=== PATIENT | female | born 1985 | race Caucasian/White ===

== ENCOUNTER 2016-10-02 10:35 | Emergency (ER) | payer MEDICAID ==
[~2016-10-02] VITALS: Wt 78.0 kg
[2016-10-02 11:47] LABS: ADD UMIC YES; URINE BILIRUBIN (Dip) NEGATIVE (NEGATIVE); URINE BLOOD (Dip) 3+ (NEGATIVE); URINE COLOR YELLOW (YELLOW); URINE GLUCOSE (Dip) NEGATIVE (NEGATIVE); URINE KETONES (Dip) TRACE (NEGATIVE); URINE LEUKOCYTE ESTERASE (Dip) NEGATIVE (NEGATIVE); URINE NITRITE (Dip) NEGATIVE (NEGATIVE); URINE TOTAL PROTEIN (Dip) TRACE (NEGATIVE); URINE UROBILINOGEN (Dip) 0.2 E.U./dL (0.1-1.0)
[2016-10-02 12:07] LABS: BACTERIA,URINE FEW; URINE RBCS >50 /HPF (0)
--- NOTE | 2016-10-02 12:12 | RADRPT ---
PROCEDURE: OBSTETRICAL ULTRASOUND CLINICAL INDICATION: Patient experiencing Vaginal Bleed () TECHNIQUE: Multiple sonographic images of the pelvis were obtained utilizing a transabdominal tech nique. The images were reviewed on a PACS workstation. COMPARISON: None. LMP: 08/21/2016 FINDINGS: The uterus measures 8.8 x 5.3 x 7.2 cm. The endometrial echo complex measures 15 mm in thickness an d is somewhat heterogeneous. There is no evidence of an intrauterine . The right ovary measures 3.6 x 2.2 x 3.0 cm. The left ovary measures 7.2 x 6.0 x 7.6 cm. There is no rmal vascular flow in both ovaries. There is a thick-walled oval cystic lesion with minimal internal debris in the right ovary and mild peripheral vascular flow which is likely a corpus luteal cyst. There is a 6.1 x 4.3 x 7.0 simple cystic lesion in the left adnexa. No significant pelvic free fluid is identified. IMPRESSION: Thickening and heterogeneity of the endometrium without evidence of an intrauterine . Find ings may be due to an early intrauterine although an ectopic cannot be excluded. Short-term follow-up ultrasound and serial Beta HCG measurements are recommended for further evalu ation. Minimally complex 1.5 cm cystic lesion in the right ovary is likely a corpus luteal cyst. 7 cm simple cystic lesion in the left adnexa. This may be a paraovarian cyst. MRI of the pelvis wi th contrast is recommended once the patient is no longer . RPTAT: EE Physician Torsten Date Time Electronically viewed and signed by Physician Torsten on 10/02/2016 12:12 /
[2016-10-02 12:51] LABS: BASOPHILS % 0.4 % (0.0-2.0); CONDITION 1; EOSINOPHILS # 0.1 10^3/ul (0.0-0.5); EOSINOPHILS % 1.3 % (0.0-7.0); HEMATOCRIT 39.5 % (37.0-47.0); HEMOGLOBIN 13.3 g/dl (12.0-16.0); LYMPHOCYTES % 31.5 % (15.0-51.0); MEAN CORPUSCULAR HEMOGLOBIN 30.2 pg (29.0-33.0); MEAN CORPUSCULAR HGB CONC 33.7 g/dl (32.0-37.0); MEAN CORPUSCULAR VOLUME 89.6 fl (82.0-101.0); MEAN PLATELET VOLUME 10.2 fl (7.4-10.4); MONOCYTE # 0.8 10^3/ul (0.3-0.9); MONOCYTES % 8.5 % (0.0-11.0); NEUTROPHIL # 5.5 10^3/ul (1.6-7.5); NEUTROPHILS % 58.3 % (39.0-77.0); PLATELET COUNT 225 10^3/UL (140-440); RED BLOOD COUNT 4.41 10^6/ul (4.20-5.40); RED CELL DISTRIBUTION WIDTH 13.9 % (11.5-14.5); UNCORRECTED WBC 9.4 10^3/ul (4.8-10.8); WHITE BLOOD COUNT 9.4 10^3/ul (4.8-10.8)
--- NOTE | 2016-10-02 12:52 | ERD ---
ER Documentation Chief Complaint Date/Time DATE: 10/02/16 TIME: 12:50 Chief Complaint mild vaginal bleeding since yesterday . sent by ob. 2-3 wks preg HPI This 22-year-old female presents with some vaginal bleeding since yesterday. She possibly passed some tissue yesterday. She is a G1 para 0. She had some minor cramping yesterday but improved today. She is approximately 5-6 weeks by dates. ROS All systems reviewed and are negative except as per history of present illness. Allergies Allergies: Coded Allergies: No Known Allergy (Unverified , 10/02/16) PMhx/Soc Medical and Surgical Hx: pt denies Medical Hx, pt denies Surgical Hx Hx Alcohol Use: No Hx Substance Use: No Hx Tobacco Use: No Smoking Status: Current every day smoker Physical Exam Vitals Vital Signs Date Time Temp Pulse Resp B/P Pulse Ox O2 Delivery O2 Flow Rate FiO2 10/02/16 10:38 98.4 77 18 148/89 98 Physical Exam Const: [] Head: Atraumatic Eyes: Normal Conjunctiva ENT: Normal External Ears, Nose and Mouth. Neck: Full range of motion..~ No meningismus. Resp: Clear to auscultation bilaterally Cardio: Regular rate and rhythm, no murmurs Abd: Soft, non tender, non distended. Normal bowel sounds Skin: No petechiae or rashes Back: No midline or flank tenderness Ext: No cyanosis, or edema Neur: Awake and alert Psych: Normal Mood and Affect Results 24 hrs Laboratory Tests Test 10/02/16 11:10 Beta HCG, Quantitative 2455.1mIU/ml Urine Bacteria FEW Urine Bilirubin NEGATIVE Urine Clarity CLEAR Urine Color YELLOW Urine Epithelial Cells MODERATE Urine Glucose NEGATIVE% Urine Hemoglobin 3+ Urine Ketones TRACE Urine Leukocyte Esterase NEGATIVE Urine Microscopic RBC >50/HPF Urine Microscopic WBC 0-2/HPF Urine Nitrite NEGATIVE Urine Specific [place] >=1.030 Urine Total Protein TRACE Urine Urobilinogen 0.2 E.U./dL Urine pH 5.5 Procedures/MDM Pelvic ultrasound shows endometrial thickening and a 7 cm ovarian cyst without signs or symptoms of adnexal or acute complications of . HCG is 2455. Patient is Rh+. Urine shows no signs of infection. Patient stable, amatory [id number] throughout the ER course. Patient presents with vaginal bleeding in first trimester with no visible intrauterine . There is a 7 cm ovarian simple cyst according to the radiologist. Patient may have had incomplete or complete although recommending 2 day follow-up to evaluate for ectopic and follow hCG until resolution or lowering. Patient is should return sooner for fevers, worsening pain, vomiting, new or worsening symptoms over 2 day recheck as advised. Departure Diagnosis: Primary Impression: Vaginal bleeding before 22 weeks gestation Patient Instructions: Vaginal Bleed in Additional Instructions: There is no appreciated today, although recommend recheck in 2 days to resolution of possible miscarriage or to recheck for ectopic . There is a ovarian cyst recommended a follow-up with primary care doctor as outpatient. MICHELLE BLACK MD Oct 02, 2016 12:52
[2016-10-02 13:15] VITALS: BP 121/70; PULSE 68; RESP 16; TEMP 98.6
== END 2016-10-02 13:15 | disposition home or self-care (01) ==
LOC: FTE 10:35
DX: O20.9 Hemorrhage in early pregnancy, unspecified (principal); O99.331 Smoking (tobacco) complicating pregnancy, first trimester; F17.210 Nicotine dependence, cigarettes, uncomplicated; Z3A.01 Less than 8 weeks gestation of pregnancy
CPT/HCPCS: 36415; 76801; 76817; 81001; 84702; 85025; 86900; 86901; Z7502; 81003

== ENCOUNTER 2016-10-04 10:16 | Emergency (ER) | payer MEDICAID ==
[~2016-10-04] VITALS: Wt 76.5 kg
[2016-10-04 10:55] LABS: URINE BLOOD (Dip) POC 3+ (NEGATIVE)
--- NOTE | 2016-10-04 11:47 | RADRPT ---
PROCEDURE: US Pelvis CLINICAL INDICATION: Vaginal Bleeding. TECHNIQUE: Sonographic evaluation of the pelvis was performed utilizing both transabdominal and tr ansvaginal technique. Curved array transabdominal transducer technique as well as a high frequency endovaginal probe was utilized. Images were reviewed on the high-resolution PACS workstation. COMPARISON: No prior studies are available for comparison. FINDINGS: The uterus is normal in size, echogenicity, and morphology measuring 10.1 x 4.4 x 6.7 cm in dimensio n. The uterus is anteverted in normal position. The endometrium measures 12 mm in diameter. The normal trilaminar stripe of the endometrium is preserved. No intrauterine is identified. No gestational sac is seen. The right ovary measures 3.6 x 2.2 x 2.6 cm in dimension. A small 1.3 cm corpus luteal cyst is seen within the right ovary. The left ovary measures 2.8 x 1.8 x 2.2 cm in dimension. A large 7 cm left para ovarian cystic lesion is seen in the left adnexa. A large exophytic left ovarian cyst is consi dered most likely. Follow-up over time is advised to ensure appropriate resolution. There are no o ther adnexal masses. There is no significant free fluid in the pelvis. No other incidental abnormal ity is identified. IMPRESSION: 1. Large 7 cm left adnexal cyst, presumably benign. Follow up is advised to ensure resolution over time. 2. Small 1.3 cm right ovarian cyst. 3. Normal appearance of the uterus and endometrium. 4. No intrauterine is identified. RPTAT: HMJB .Travis Do MD, MD Date Time Electronically viewed and signed by .Travis Do MD, MD on 10/04/2016 11:46 .B/
[2016-10-04 13:17] VITALS: BP 121/78; PULSE 68; RESP 18; TEMP 98.4
--- NOTE | 2016-10-04 16:47 | ERD ---
DATE OF SERVICE: HISTORY OF PRESENT ILLNESS: The patient is a 30-year-old female coming in for a repeat of beta hCG level. The patient was seen here 2 days ago with having vaginal bleeding. She was recommended to michelle edmonds for recheck on levels as there is no IUP seen on ultrasound. The patient states she is not monroe ving any pain. She is having some bleeding with clotting, however, it is controlled. G1, P0, AO. Last normal menstrual period was 08/21/2016. PAST MEDICAL HISTORY: Denies. MEDICATION ALLERGIES: DENIES. PAST SURGICAL HISTORY: Denies HOSPITALIZATION: Denies. REVIEW OF SYSTEMS: A 12-point review of systems was done. Refer to HPI for positives, all other sy stems negative. PHYSICAL EXAMINATION VITAL SIGNS: Temperature is 98.4, pulse 61, blood pressure 129/79, respiratory 18, O2 saturation 99 % on room air. Pain intensity is 0/10. GENERAL: The patient is well-appearing, well-nourished, no acute distress. CHEST: Clear to auscultation bilaterally. There are no rales, wheezes or rhonchi. HEART: Regular rate and rhythm. No murmurs, clicks, rubs or gallops. No S3 or S4. ABDOMEN: Soft, nontender and nondistended. Good bowel sounds. No rebound or guarding. No gross junior tonitis. No gross organomegaly or masses. No Jordan sign or McBurney point tenderness. BACK: No midline or flank tenderness. SKIN: There is no apparent rash or petechia. The skin is warm and dry. EMERGENCY ROOM COURSE: The patient had beta quant checked. Levels had dropped from 2455 to 588. T he patient's urine showed 3+ blood, otherwise no infection. Blood type is O positive. An obstetric al ultrasound showed: 1. A large 7-cm left adnexal cyst, presumably benign, unchanged from previous ultrasound. Followup advised to ensure resolution over time. 2. Small 1.3 cm right ovarian cyst. 3. Normal appearance of the uterus and endometrium. 4. No IUP identified. DIAGNOSIS: Miscarriage. MEDICAL DECISION MAKING: The patient's beta quant levels have decreased. The thickening seen in th e previous ultrasound of the endometrium has improved, so I believe the patient is actively miscarry ing. I have low suspicion for ectopic . The patient does not require RhoGAM injection as patient is Rh positive. The patient's vital signs are stable. The patient is nontoxic-appearing, i s not complaining of severe heavy bleeding. DISCHARGE: The patient is discharged stable. Patient is told to follow up with OB within 1 to 2 da ys for further evaluation. The patient was told if symptoms change or worsen, to return to the ER. All other questions answered at time of discharge. Discharge summary given at the time of departur e. Patient understood and complied with plan. Dictated By: DONA BOLTON for MICHELLE CONNOLLY/RENETTA Conf#: [id number] DID#: [id number]
== END 2016-10-04 13:19 | disposition home or self-care (01) ==
LOC: FTE 10:16
DX: O03.9 Complete or unspecified spontaneous abortion without complication (principal)
CPT/HCPCS: 76801; 76817; 81003; 84702; Z7502